=== PATIENT | female | born 1985 | race African-American/Black ===

== ENCOUNTER 2020-08-23 13:19 | Emergency (ER) | payer OTHER ==
[2020-08-23 13:46] VITALS: BMI 257.6
[2020-08-23 14:06] LABS: BASO % 0.3 % (0-2.0); EOS % 1.2 % (0-4.5); HEMATOCRIT 27.5 % (32.4-45.2); HEMOGLOBIN 8.7 GM/dL (10.7-15.3); LYMPH % 10.9 % (8-40); MCH 23.9 pg (25.7-33.7); MCHC 31.7 g/dl (32.0-36.0); MEAN CELL VOLUME 75.3 fl (80-96); MEAN PLT VOLUME 7.9 fl (7.5-11.1); MONO % 3.3 % (3.8-10.2); NEUT % 84.3 % (42.8-82.8); PLATELET COUNT 317 K/MM3 (134-434); RBC 3.65 M/mm3 (3.60-5.2); RDW 21.4 % (11.6-15.6); WHITE BLOOD COUNT 9.3 K/mm3 (4.0-10.0)
[2020-08-23 14:12] LABS: INR 1.11 (0.83-1.09); PROTHROMBIN TIME (PATIENT) 13.4 SEC (9.7-13.0)
[2020-08-23 14:26] LABS: CALCIUM 8.6 mg/dL (8.5-10.1)
[2020-08-23 14:27] LABS: ALBUMIN 3.2 g/dl (3.4-5.0); BLOOD UREA NITROGEN 10.5 mg/dL (7-18)
[2020-08-23 14:30] LABS: CREATININE 0.8 mg/dL (0.55-1.3)
[2020-08-23 14:31] LABS: BILIRUBIN,TOTAL 0.4 mg/dL (0.2-1)
[2020-08-23 14:55] LABS: ANISOCYTOSIS 1+; PLATELET ESTIMATE NORMAL
[2020-08-23 17:42] LABS: BASO % 1.3 % (0-2.0); EOS % 0.3 % (0-4.5); HEMOGLOBIN 8.2 GM/dL (10.7-15.3); MCH 23.8 pg (25.7-33.7); MCHC 31.7 g/dl (32.0-36.0); MEAN CELL VOLUME 74.8 fl (80-96); MEAN PLT VOLUME 7.9 fl (7.5-11.1); MONO % 2.3 % (3.8-10.2); NEUT % 84.1 % (42.8-82.8); PLATELET COUNT 310 K/MM3 (134-434); RBC 3.47 M/mm3 (3.60-5.2); RDW 21.4 % (11.6-15.6)
[2020-08-23 23:23] VITALS: BP 108/71; PULSE 78; TEMP 98.6
== END 2020-08-23 23:27 | disposition left against medical advice (07) ==
LOC: JER 13:19
DX: O73.1 Retained portions of placenta and membranes, without hemorrhage (principal)
CPT/HCPCS: 36415; 36430; 76830-TC; 80053; 85025; 85610; 86850; 86900; 86901; 86922; 93005; 93010; 99284-25; P9058